=== PATIENT | female | born 1950 | race Caucasian/White ===

== ENCOUNTER 2018-03-02 09:57 | Emergency (ER) | payer MEDICARE, BC ==
[2018-03-02 10:00] VITALS: BP 147/74; PULSE 94; RESP 16; TEMP 98.8; O2SAT 98
[2018-03-02] MEDS ORDERED: PROZ20CA11 PO (10:11)
[2018-03-02] MEDS ORDERED: RALO60 PO (10:11)
[2018-03-02] MEDS ORDERED: ZOCO40TA PO (10:11)
--- NOTE | 2018-03-02 10:58 | PD ---
HPI Chief Complaint: Musculoskeletal Complaint Time Seen by Provider: 10:30 Travel History International Travel<30 days: No Contact w/Intl Traveler<30days: No Traveled to known affect area: No History of Present Illness HPI 67-year-old female presents emergency department for evaluation of right leg pain after falling out of a pickup. Patient states that [facility] brought her to the emergency department for evaluation of right leg pain. Says that she was jumping up into the truck bed when the tailgate came open and she fell backwards. Patient denies head trauma, loss of consciousness, blurred vision. Denies neck or back pain. Denies hip pain. Says the right knee is tender to palpation and she has difficulty with flexion because of the pain. Patient points to the posterior aspect of the right knee. Pain is mild to moderate in severity, aching. She has no other complaints today. PFSH Past Medical History Diminished Hearing: No Tetanus Vaccination: Unknown Influenza Vaccination: Yes ?: Not Social History Alcohol Use: No Tobacco Use: No Substance Use: No Allergies-Medications Reported Meds & Prescriptions Reported Meds & Active Scripts Active Walker with Front Wheels (Device) 1 Mis Mis Ea .XX DIRECTED Reported Prozac (Fluoxetine HCl) 20 Mg Cap 100 Mg PO DAILY Zocor (Simvastatin) 40 Mg Tab 40 Mg PO DAILY Evista (Raloxifene HCl) 60 Mg Tab 60 Mg PO DAILY Review of Systems Except as stated in HPI: all other systems reviewed are Neg Physical Exam Narrative GENERAL: Well-nourished, well-developed patient. SKIN: Focused skin assessment warm/dry. HEAD: Normocephalic. EYES: No scleral icterus. No injection or drainage. NECK: Supple, trachea midline. No JVD or lymphadenopathy. CARDIOVASCULAR: Regular rate and rhythm without murmurs, gallops, or rubs. RESPIRATORY: Breath sounds equal bilaterally. No accessory muscle use. MUSCULOSKELETAL: No cyanosis, or edema. Right lower extremity-tenderness palpation to the distal hamstring, knee joint line. Limited range of motion secondary to pain. Decreased to about 90 flexion and nearly full extension. Neurovascular intact BACK: Nontender without obvious deformity. No CVA tenderness. Data Data Last Documented VS Vital Signs Date Time Temp Pulse Resp B/P (MAP) Pulse Ox O2 Delivery O2 Flow Rate FiO2 03/02/18 10:00 98.8 94 16 147/74 (98) 98 Orders Orders Knee, Complete (4vws) (03/02/18 ) Ct Knee W/O Contrast (03/02/18 ) Splint Or Brace Apply/Monitor (03/02/18 11:58) Crutches (03/02/18 12:02) Ed Discharge Order (03/02/18 12:23) MDM Medical Decision Making Medical Screen Exam Complete: Yes Emergency Medical Condition: Yes Differential Diagnosis Right knee contusion, bursitis, cellulitis, fracture, osteonecrosis, avascular necrosis, sprain, strain Narrative Course 67-year-old female presents emergency department for evaluation of right knee pain after fall that occurred today. She denies any head trauma, neck, back pain. Vital signs are stable. The exam findings are consistent with a right knee strain versus sprain versus hyperextension. Neurovascular intact right lower extremity. X-ray concerning for a tibial plateau fracture. Ordered CT at the recommendation of radiologist. Offered the patient pain medication however, she declined. CT confirmed a tibial plateau fracture. Posterior leg splint placed. Ordered crutches however, patient was rather unsteady on crutches so ordered rolling walker. Decline outpatient pain medication. Strongly advised to follow-up with orthopedics as soon as possible. Patient lives in [place] so will defer orthopedics here in [facility]. Patient says she will follow up with her PCP for referral to ortho in [facility]. Diagnosis Primary Impression: Tibial plateau fracture, right Qualified Codes: S82.141A - Displaced bicondylar fracture of right tibia, initial encounter for closed fracture Referrals: Orthopedist Primary Care Physician Additional Instructions: Recommend you leave the splint in place until evaluated by orthopedic physician. Follow up within 1 week. Weight bearing as tolerated. Use ice or heat for symptom relief. If no contraindications, you may use Tylenol or Motrin per package instructions for your pain. Elevate the joint above the heart to reduce swelling. You may use compression with Sina wrap or similar to reduce swelling. If symptoms persist or worsen, return to the emergency department. Follow up with your primary care physician within 2 days. Scripts Walker with Front Wheels (Walker with Front Wheels) 1 Mis Mis EA .XX DIRECTED for leg fracture, #1 0 Refills Prov: Herb Bose MD 03/02/18 Disposition: 01 DISCHARGE HOME Condition: Stable Jo Rivera March 02, 2018 10:58
--- NOTE | 2018-03-02 11:12 | RADRPT ---
EXAM DATE/TIME: 03/02/2018 11:00 [facility] COMPARISON: No previous studies available for comparison. INDICATIONS : Right knee pain post falling out of a truck MEDICAL HISTORY : None. SURGICAL HISTORY : None. ENCOUNTER: Initial ACUITY: 1 day PAIN SCORE: 5/10 LOCATION: Right posterior knee FINDINGS: The appearance is worrisome for a nondisplaced lateral tibial plateau fracture, however no hemarthros is is clearly evident. The femur and patella appear intact. The visualized fibula appears grossly int act. CONCLUSION: Abnormal appearance of the lateral tibial plateau worrisome for fracture. Recommend CT for definitive evaluation. Tomy Amado MD on March 02, 2018 at 11:08 Board Certified Radiologist. This report was verified electronically.
--- NOTE | 2018-03-02 11:54 | RADRPT ---
EXAM DATE/TIME: 03/02/2018 11:27 [facility] COMPARISON: KNEE RIGHT COMPLETE (4VWS), March 02, 2018, 11:00. INDICATIONS : Trauma. Fall. Right knee pain. Unable to weight bear. Abnormal x-ray. RADIATION DOSE: 7.78 CTDIvol (mGy) MEDICAL HISTORY : None SURGICAL HISTORY : None. ENCOUNTER: Initial ACUITY: 1 day PAIN SCALE: 7/10 LOCATION: Right knee TECHNIQUE: Volumetric scanning of the knee was performed. Using automated exposure control and adjustment of th e mA and/or kV according to patient size, radiation dose was kept as low as reasonably achievable to obtain optimal diagnostic quality images. DICOM format image data is available electronically for re view and comparison. FINDINGS: Nondepressed lateral plateau fracture involving the lateral half of the tibial plateau. Articular andrade rface is congruent. Femoral condyle intact The fibular head intact Small joint effusion. CONCLUSION: Lateral plateau fracture in alignment. Ibrahima Rodgers MD FACR on March 02, 2018 at 11:50 Board Certified Radiologist. This report was verified electronically.
[2018-03-02] MEDS ORDERED: WALKER WHEELS/F1 MIS (12:36)
== END 2018-03-02 12:44 | disposition home or self-care (01) ==
LOC: PHEFT 09:57
DX: S82.141A Displaced bicondylar fracture of right tibia, initial encounter for closed fracture (principal); W17.89XA Other fall from one level to another, initial encounter
CPT/HCPCS: 29505; 73564; 73700; 99284; E0113